=== PATIENT | female | born 1970 | race Caucasian/White ===

== ENCOUNTER 2016-07-31 09:35 | Day surgery (SDC) | payer BC ==
[~2016-07-31 09:35] MED LIST: RINGERS SOLUTION,LACTATED 1,000 ML IV PRN
--- OUTSIDE RECORDS SUMMARY | 2016-07-31 09:39 | XMS REPORT | Continuity of Care Document ---
:1970 Author Organization [facility] ([facility]) Address [address] [place] [address] Phone [phone] Care Team Providers Name Role Phone Haim Gipson Primary Care Provider [phone] Source Comments This disclosure is being made pursuant to the Care Everywhere program, applicable federal and state laws, and may not contain all informaitonavailable regarding this patient.[facility] ([facility]) Active Allergies and Adverse Reactions No Active Allergies Current Medications Not on file Active Problems Problem Noted Date Routine follow-up 08/04/2007 Elevated blood pressure reading without diagnosis of hypertension 04/30/2007 Supervision of other normal 10/18/2006 Elderly multigravida with antepartum condition or complication 10/18/2006 Immunizations Name Dates Previously Given Next Due Influenza, unspecified 01/27/2007 Social History Tobacco Use Types Packs/Day Years Used Date Never Assessed Last Filed Vital Signs Vital Sign Reading Time Taken Blood Pressure 139/69 08/04/2007 9:53 AM CDT Pulse 75 08/04/2007 9:53 AM CDT Temperature 36.1 C (96.98 F) 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
[2016-07-31 10:16] LABS: Hematocrit 33.7 % (37.0-47.0); Hemoglobin 10.7 gm/dL (12.5-16.0); Mean Cell Volume 83.4 fl (78-100); Mean Corpuscular Hemoglobin 26.5 pg (27-31); Mean Corpuscular Hgb Conc 31.8 g/dl (32-36); Mean Platelet Volume 9.4 fl (6.0-9.5); Neutrophil # 6.3 K/mm3 (1.3-6.0); Neutrophil % 70.6 % (42-75.0); Platelet Count 217 K/mm3 (150-450); Red Blood Count 4.04 M/mm3 (4.2-5.4); Red Cell Distribution Width 15.1 % (11.5-14.0); White Blood Count 8.9 K/mm3 (4.0-10.5)
[2016-07-31] MEDS ORDERED: oxyCODONE HCL/ACETAMINOPHEN 1 TAB TABLET PO PRN (12:59)
[2016-07-31] MEDS ORDERED: IBUPROFEN 600 MG TABLET PO PRN (12:59)
--- NOTE | 2016-07-31 13:31 | OR ---
Operative Report - Dictated Report Narrative: Operative Report 07/31/16 Hysteroscopy Dilatation and Curettage Preoperative Diagnosis: Menorrhagia Postoperative Diagnosis: Menorrhagia Procedure: Hysteroscopy Dilatation and Curettage Surgeon: Audrey Portillo M.D. 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 There was evidence of either a polyp or mass on the anterior and right lateral aspect of the endometrium. Patient stated that she was at the end of her period. However there was copious amounts of tissue on the lining of the uterus. It is of note that the uterus was very anteverted with little descent down the vagina. Fluids: 400 ml EBL: Minimal Drains: None Complications: None Condition: Stable Pathology: Endometrial curettings Procedure: The patient was taken to the operating room with IV fluids running. She was placed in the dorsal lithotomy position after anesthesia was induced. A bivalve speculum was placed in the vagina. The anterior lip of the cervix was grasped with a single-tooth tenaculum. Uterine sound was passed into the endometrial cavity with ease. Uterine sound was 8 cm. The cervix was dilated with Raafel dilators. The hysteroscope was introduced into the endometrial cavity. The cavity was distended with normal saline. [place] were visualized bilaterally. There was evidence of either a polyp or mass on the anterior and right lateral aspect of the endometrium. The hysteroscope was removed. The cavity was sharply curetted without difficulty. The hysteroscope was once again introduced into the cavity. The cavity was completely curetted. The hysteroscope was removed. The single-tooth tenaculum was removed. Sites were hemostatic. The speculum was removed from the vagina. Sponge counts were correct 2. The patient tolerated the procedure well.
[2016-07-31 13:45] VITALS: BP 112/71
== END 2016-07-31 09:36 | disposition home or self-care (01) ==
LOC: AMB 09:35
PROVIDERS: ATTEND Obstetrics & Gynecology
PROC: 0UDB8ZX Extraction of Endometrium, Via Natural or Artificial Opening Endoscopic, Diagnostic (ICD-10-PCS; principal; 2016-07-31 11:15)
DX: N92.0 Excessive and frequent menstruation with regular cycle (principal); Z68.27 Body mass index [BMI] 27.0-27.9, adult

== ENCOUNTER 2017-02-14 07:50 | Observation (INO) | payer BC ==
[~2017-02-14 07:50] MED LIST changes: +RINGER'S SOLUTION,LACTATED 1,000 ML IV PRN; -RINGERS SOLUTION,LACTATED 1,000 ML IV PRN; +ceFAZolin SODIUM 2 GM in DEXTROSE 5 % IN WATER 50 ML IV PRN
[2017-02-14] MEDS ORDERED: RINGER'S SOLUTION,LACTATED 1,000 ML IV ONE ×3 (08:23→13:20)
[2017-02-14] MEDS ORDERED: BUPIVACAINE HCL/EPINEPHRINE 50 ML VIAL IJ ONE ×2 (09:45)
[2017-02-14 12:39] LABS: Hematocrit 29.8 % (37.0-47.0); Hemoglobin 9.5 gm/dL (12.5-16.0); Mean Cell Volume 84.7 fl (78-100); Mean Corpuscular Hgb Conc 31.9 g/dl (32-36); Mean Platelet Volume 9.7 fl (6.0-9.5); Neutrophil # 7.9 K/mm3 (1.3-6.0); Neutrophil % 76.4 % (42-75.0); Platelet Count 271 K/mm3 (150-450); Red Blood Count 3.52 M/mm3 (4.2-5.4); Red Cell Distribution Width 13.6 % (11.5-14.0); White Blood Count 10.3 K/mm3 (4.0-10.5)
[2017-02-14] MEDS ORDERED: oxyCODONE HCL/ACETAMINOPHEN 1 TAB TABLET PO ONE (13:00)
[2017-02-14] MEDS ORDERED: IBUPROFEN 800 MG TABLET PO ONE (13:00)
[2017-02-14 13:04] LABS: Anion Gap 14.6 mmol/L (6.8-13.8); BUN/Creatinine Ratio 7.1 (9.0-21.6); Calcium * 7.8 mg/dL (7.9-10.9); Carbon Dioxide 24.9 mmol/L (24-32.6); Estimated Creat Clear 78.3; Potassium 4.5 mmol/L (3.4-4.6)
[2017-02-14] MEDS ORDERED: MORPHINE SULFATE 4 MG/ML SYRG IV PRN (13:07)
[2017-02-14] MEDS ORDERED: HYDROmorphone HCL 2 MG/ML VIAL IV ONE (13:20)
[2017-02-14] MEDS ORDERED: MORPHINE SULFATE 2 MG/ML DISP.SYRIN IV PRN (13:30)
--- NOTE | 2017-02-14 13:42 | OR ---
Operative Report - Dictated Report Narrative: Date: 02/14/2017 Preoperative Diagnosis: Menometrorrhagia Postoperative Diagnosis: Same Procedure: Total Vaginal Hysterectomy, cystotomy repair, modified Green's culdoplasty, cystoscopy Surgeon: Cathy Estrella D.O. Anesthesia: General with local Findings: Enlarged uterus, normal-appearing cervix, with cystoscopy adequate distention and repair of cystotomy, no active bleeding, bilateral ureteral jets visualized Fluids: 1400 ml EBL: 50 ml Pathology: Uterus and cervix Drains: Bardales catheter, pink urine was noted at the end of surgery and clear urine was noted to be in the Bardales catheter in the recovery room Complications: Incidental cystotomy Condition: Stable Procedure: The patient was taken to the operating room with IV fluids running. She was placed in the dorsal lithotomy position after general anesthesia was placed. She was prepped and draped in the normal sterile fashion. A weighted speculum was placed in the posterior aspect of the vagina and a [place] retractor was placed in the anterior aspect of the vagina. Briesky retractors were placed laterally. The cervix was grasped with two single tooth tenaculums. The cervix was injected circumferentially with 0.5% marcaine with epinephrine. A circumferential incision was made around the cervix using a Delfino Ellison scissors. Sharp dissection was then performed using the Delfino Ellison scissors. Attention was turned posteriorly. Sharp dissection was performed until the posterior peritoneal reflection was clearly visualized. The peritoneum was then entered sharply. Location was confirmed by visualization of bowel. Goose neck retractor was then placed into the abdominal cavity. Attention was then turned anteriorly. Sharp dissection was performed. There was a great amount of difficulty entering into the peritoneum anteriorly due to scar tissue and distorted anatomy. An incidental cystotomy was noted during the sharp dissection anteriorly. The defect was midline and approximately 1- 1.5 cm. This was repaired with 3-0 Vicryl in 2 layers. It was easily visualized and repaired without difficulty. The anterior peritoneum was entered laterally and a thick adhesion of the anterior peritoneum and bladder were adherent to the uterus. This was carefully dissected until entry was noted. The [place] retraction was then placed into the abdominal cavity. Attention was then turned posteriorly. The uterosacral ligaments were clamped with the a curved Dev[place], transected and suture ligated using 0 vicryl. These ligatures were tagged for later modified Green's culdoplasty. Attention was then turned to the Cardinal ligaments and uterine vessels. The cardinal ligaments, uterine vessels and curnual angles were sequentually were clamped, cauterized and transected with the Ligasure. Hemostasis was noted. The tubes and ovaries were briefly visualized and appeared to be normal. The uterosacral tags were then utilized for culdoplasty. The suture was driven through the uterosacral ligament, reefed across the peritoneum posteriorly and brought out the midline of the vaginal cuff. The vaginal cuff was closed in a vertical fashion with 2-0 vicryl in a running locked stitch for excellent hemostasis. The culdoplasty stitch was tied down to elevate the vaginal cuff. Cystoscopy was then performed. Fernley urine was noted. Evidence of cystotomy repair was noted to be just superior to the trigone and midline. No active bleeding was noted. And bilateral ureteral jets were noted. The cystoscope was then removed and bladder was then drained. A Bardales catheter was then placed. The patient tolerated the procedure well. Sponge, lap and instrument counts were correct x2. The patient was taken to the recovery room in stable condition.
[2017-02-14] MEDS ORDERED: oxyCODONE HCL/ACETAMINOPHEN 1 TAB TABLET PO PRN (14:01)
[2017-02-14] MEDS ORDERED: IBUPROFEN 800 MG TABLET PO PRN ×2 (14:02→16:35)
[2017-02-14] MEDS ORDERED: HYDROmorphone HCL 2 MG/ML VIAL IV PRN (16:35)
[2017-02-15] MEDS: oxyCODONE HCL/ACETAMINOPHEN 1 TAB TABLET PO PRN ×2 (06:48→13:12)
[2017-02-15 07:42] LABS: Hematocrit 29.1 % (37.0-47.0); Hemoglobin 9.2 gm/dL (12.5-16.0); Mean Cell Volume 82.9 fl (78-100); Mean Corpuscular Hemoglobin 26.2 pg (27-31); Mean Corpuscular Hgb Conc 31.6 g/dl (32-36); Mean Platelet Volume 9.6 fl (6.0-9.5); Neutrophil # 11.7 K/mm3 (1.3-6.0); Neutrophil % 82.3 % (42-75.0); Platelet Count 283 K/mm3 (150-450); Red Blood Count 3.51 M/mm3 (4.2-5.4); Red Cell Distribution Width 13.7 % (11.5-14.0); White Blood Count 14.1 K/mm3 (4.0-10.5)
[2017-02-15 07:59] LABS: Anion Gap 11.7 mmol/L (6.8-13.8); BUN/Creatinine Ratio 9.1 (9.0-21.6); Calcium * 8.6 mg/dL (7.9-10.9); Carbon Dioxide 26.4 mmol/L (24-32.6); Estimated Creat Clear 71.1; Potassium 4.1 mmol/L (3.4-4.6)
[2017-02-15] MEDS ORDERED: LEVOFLOXACIN 250 MG TABLET PO SCH (08:00)
[2017-02-15 08:15] VITALS: BP 128/68
--- NOTE | 2017-02-15 12:16 | PN ---
Subjective - Date and Time Seen Date: 02/15/17 Time: 12:08 Subjective Narrative: Pt is doing very well. Pain is minimal. IV is out. She is ambulating. Feels some gurgles in her abdomen. Good clear urine output. No numbness in her hands. Objective - Review of Systems Generalized/Overall Review: Reports: No Symptoms Reported EENTM: Reports: No Symptoms Reported Respiratory: Reports: No Symptoms Reported Cardiac: Reports: No Symptoms Reported Abdominal: Reports: Other - gurgles Genitourinary Symptoms: Reports: Other - plata in place, small spot of blood on pad when first ambulated Musculoskeletal Complaints: Reports: No Symptoms Reported Neurological: Reports: Other - hand tingling has resolved Endocrine: Reports: No Symptoms Reported - Vitals Vitals: Last Vital Signs Temp 36.8 C 02/15/17 08:14 Pulse 86 02/15/17 08:14 Resp 16 02/15/17 08:14 BP 128/68 02/15/17 08:14 Pulse Ox 98 02/15/17 08:14 - Abnormal Lab Findings Abnormal Lab Findings: Abnormal Lab Results 02/14/17 02/14/17 02/15/17 Range/Units 12:30 12:30 07:37 WBC 14.1 H D (4.0-10.5) K/mm3 RBC 3.52 L 3.51 L (4.2-5.4) M/mm3 Hgb 9.5 L 9.2 L (12.5-16.0) gm/dL Hct 29.8 L 29.1 L (37.0-47.0) % MCH 26.2 L (27-31) pg MCHC 31.9 L 31.6 L (32-36) g/dl MPV 9.7 H 9.6 H (6.0-9.5) fl Immature Gran % (Auto) 0.50 H 0.60 H (0.001-0.429) % Immature Gran # (Auto) 0.05 H 0.08 H (0.000-0.0310) K/mm3 Neutrophils % 76.4 H 82.3 H (42-75.0) % Lymphocytes % 16.1 L 10.1 L (20-51) % Neutrophils # 7.9 H 11.7 H (1.3-6.0) K/mm3 Lymphocytes # 1.4 L (1.5-3.5) k/mm3 Anion Gap 14.6 H (6.8-13.8) mmol/L BUN/Creatinine Ratio 7.1 L (9.0-21.6) Random Glucose (70-110) mg/dL Calcium 7.8 L (7.9-10.9) mg/dL 02/15/17 Range/Units 07:37 WBC (4.0-10.5) K/mm3 RBC (4.2-5.4) M/mm3 Hgb (12.5-16.0) gm/dL Hct (37.0-47.0) % MCH (27-31) pg MCHC (32-36) g/dl MPV (6.0-9.5) fl Immature Gran % (Auto) (0.001-0.429) % Immature Gran # (Auto) (0.000-0.0310) K/mm3 Neutrophils % (42-75.0) % Lymphocytes % (20-51) % Neutrophils # (1.3-6.0) K/mm3 Lymphocytes # (1.5-3.5) k/mm3 Anion Gap (6.8-13.8) mmol/L BUN/Creatinine Ratio (9.0-21.6) Random Glucose 119 H (70-110) mg/dL Calcium (7.9-10.9) mg/dL - Exam Constitutional: Present: Alert, Oriented x3, Cooperative, Well developed, No distress ENT Exam: Present: normal ENT inspection Respiratory: Present: no respiratory distress Cardiovascular/Chest: Present: no edema Abdomen: Present: soft, nontender, nondistended, obese /Rectal: Present: Other - plata in place Skin Exam: Present: normal color, warm/dry, no cyanosis Appearance: Present: appropriate appearance, appropriate insight Eye contact: Present: cooperative, good eye contact, normal speech Thoughts: Present: normal thought pattern Cauti Physician Documentation - Urinary Catheter Management Urethral (Plata) Urethral Indwelling: Yes Reason for Continuing Indwelling Catheter: Other - s/p cystotomy repair for decompression Date of Insertion: 02/14/17 Assessment/Plan Plan Narrative: s/p TVH, cystotomy repair, modified mccalls culdoplasty, cystoscopy, POD #1 hospitalized due to inadequate pain control and high anxiety with an afternoon surgery time yesterday pain controlled with po meds d/c home, postop restrictions reviewed plata cather to stay indwelling until cystogram and FU visit as scheduled on Saturday
--- NOTE | 2017-02-15 12:19 | DS ---
(1) Post-op pain Problem: Acute Description of Stay: Pt was admitted overnight to better control pain, ease anxiety due to plata catheter and postop pain. 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 After radiology appointment please go to Dr. Estrella's office for a follow-up appointment. Please contact Dr. Estrella with any questions or concerns, . Complete Home Medications List: Complete Home Medication List: Ibuprofen [Motrin] 800 mg PO Q6H PRN tablet 02/15/17 Levofloxacin [Levaquin] 250 mg PO 0800 tablet 02/15/17 oxyCODONE HCL/ACETAMINOPHEN [Percocet 5 MG/325 MG] 2 tab PO Q4H PRN #0 tablet
== END 2017-02-15 13:30 | disposition home or self-care (01) ==
LOC: AMB 07:50 → MS 16:17
PROVIDERS: ADMIT Obstetrics & Gynecology Gynecologic Oncology; ATTEND Obstetrics & Gynecology Gynecologic Oncology
PROC: 0UTC7ZZ Resection of Cervix, Via Natural or Artificial Opening (ICD-10-PCS; 2017-02-14)
PROC: 0UT97ZZ Resection of Uterus, Via Natural or Artificial Opening (ICD-10-PCS; principal; 2017-02-14 09:05)
DX: N92.1 Excessive and frequent menstruation with irregular cycle (principal); N99.71 Accidental puncture and laceration of a genitourinary system organ or structure during a genitourinary system procedure; G89.18 Other acute postprocedural pain; F41.9 Anxiety disorder, unspecified; Z68.31 Body mass index [BMI] 31.0-31.9, adult